=== PATIENT | female | born 1980 | race Hispanic/Latino ===

== ENCOUNTER 2019-01-30 08:08 | Day surgery (SDC) | payer OTHER ==
[2019-01-29 14:20] VITALS: BP 127/67
[2019-01-29 14:26] LABS: BASOPHILS % (AUTO) 0.4 % (0.0-5.0); EOSINOPHILS % (AUTO) 0.4 % (0.0-8.0); HEMATOCRIT 39.6 % (36-48); LYMPHOCYTES % (AUTO) 36.1 % (21.0-51.0); MEAN CORPUSCULAR HGB CONC 34.7 g/dL (32.0-36.0); MEAN CORPUSCULAR VOLUME 89.3 fL (79-99); NEUTROPHILS % (AUTO) 57.1 % (40.0-77.0); PLATELET COUNT (AUTO) 287 K/uL (130-400); RED BLOOD CELL COUNT(AUTO) 4.43 MIL/uL (4.00-5.50); RED CELL DISTRIBUTION WIDTH 12.8 % (11.0-15.5); WHITE BLOOD COUNT (AUTO) 7.8 K/uL (4.8-10.8)
[2019-01-29 14:33] LABS: CREATININE 0.9 mg/dL (0.5-1.5)
[2019-01-30] VITALS (18 sets, daily range): BP systolic 108–139; BP diastolic 64–87
[~2019-01-30] VITALS: Ht 160 cm; Wt 82.1 kg
[~2019-01-30 08:08] MED LIST: CEFAZOLIN SODIUM 1 GM VIAL IVP ONE; [UNRECOGNIZED DRUG - OTHER] PO
[2019-01-30] MEDS ORDERED: LACTATED RINGERS 1000ML 1,000 ML IV ONE (08:36)
--- NOTE | 2019-01-30 08:45 | NUR ---
POTENTIAL FOR INFECTION: PATIENT STATED SHAVED HERSELF LAST NIGHT 01/29/19, NO SHAVING NEEDED ASSESSED PER MAURICE RICE MA. WIPED RIGHT KNEE / LEG WITH LUTHER: 2% CHLORHEXIDINE GLUCONATE CLOTH PATIENTS SKIN PREP
[2019-01-30] MEDS ORDERED: SUCCINYLCHOLINE 200MG/10ML SYR ONE (10:43)
[2019-01-30] MEDS ORDERED: LIDOCAINE PF 2% 5ML ABBOJECT ONE (10:43)
[2019-01-30] MEDS ORDERED: DEXAMETHASONE SOD PHOSPHATE 10MG/ML 1ML VIAL ONE (10:44)
[2019-01-30] MEDS ORDERED: ONDANSETRON HCL 4 MG/2 ML VIAL ONE (10:44)
[2019-01-30] MEDS ORDERED: ROCURONIUM 10MG/1ML SYR 10 MG/ML ML ONE (10:45)
[2019-01-30] MEDS ORDERED: FENTANYL CITRATE PF 50 MCG/1 ML 2ML VIAL ONE ×4 (10:45→13:16)
[2019-01-30] MEDS ORDERED: GLYCOPYRROLATE 1 MG/5 ML SYRINGE ONE (10:45)
[2019-01-30] MEDS ORDERED: NEOSTIGMINE 5MG/5ML SYR IV ONE (10:45)
[2019-01-30] MEDS ORDERED: PROPOFOL 10 MG/ML 20ML VIAL IV ONE (10:45)
[2019-01-30] MEDS ORDERED: MIDAZOLAM HCL 1 MG/ML 2ML VIAL ONE (10:45)
[2019-01-30] MEDS ORDERED: ROPIVACAINE 0.5% 5MG/ML 30ML IJ ONE (10:47)
[2019-01-30] MEDS: CEFAZOLIN SODIUM 1 GM VIAL ONE ×2 (11:37→12:05)
[2019-01-30] MEDS ORDERED: HYDR-4457 PO (13:31)
[2019-01-30] MEDS ORDERED: NAPR-1023 PO (13:31)
[2019-01-30] MEDS ORDERED: CEPH500B PO (13:31)
[2019-01-30] MEDS ORDERED: MEPERIDINE-PF 25 MG/ML SYG ONE ×2 (13:56→14:03)
--- NOTE | 2019-01-30 14:50 | NUR ---
POST OP RECEIVED PT FROM PACU, S/P RIGHT ACL SURGERY DRESSING TO RIGHT KNEE DRY AND INTACT, NEUROVASCULAR CHECKS WNL. PT AWAKE AND ALERT IN BED, NO DISTRESS NOTED. DENIES ANY PAIN OR DISCOMFORTS. VS STABLE ON ARRIVAL
--- NOTE | 2019-01-30 15:10 | NUR ---
DC DC INSTRUCTIONS GIVEN TO PT/ PTS DAUGTHER WITH RX X3, INSTRUCTED TO F/U WITH DR. NULL ON 02/01/19, PHOTO COPY OF DR. NULL DC ORDERS PROVIDED AND REVIEWED IN DETAILED PT HAS CRUTCHES ALREADY FROM HOME. PT /DAUGHTER VERBALIZED UNDERSTANDING OF ALL INSTRUCTIONS PROVIDED. PIV REMOVED CATHETER INTACT, SITE ASYMPTOMATIC
--- NOTE | 2019-01-30 15:15 | NUR ---
DC PT DC HOME VIA WC, NO DISTRESS NOTED. DENIED ANY PAIN OR DISCOMFORTS. DRESSING TO RIGHT KNEE DRY AND INTACT, ACCOMPANIED BY DAUGHTER.
== END 2019-01-30 15:15 | disposition home or self-care (01) ==
LOC: DAH 08:08
PROVIDERS: ATTEND Orthopaedic Surgery
DX: M23.221 Derangement of posterior horn of medial meniscus due to old tear or injury, right knee (principal); M23.8X1 Other internal derangements of right knee; M25.461 Effusion, right knee; G89.29 Other chronic pain; Z79.899 Other long term (current) drug therapy; Z98.890 Other specified postprocedural states
CPT/HCPCS: 29881; 29888; 36415; 80048; 84703; 85025; A4649 ×6; A4930 ×2; A6223; C1713; C1762; C1776; J0330; J0690 ×2; J1100; J2001; J2175 ×2; J2250; J2405; J2704; J2710; J2795; J3010 ×4; J3490; J7120 ×2